=== PATIENT | male | born 1960 | race African-American/Black ===

== ENCOUNTER 2018-07-16 16:54 | Emergency (ER) | payer OTHER, MEDICAID ==
[~2018-07-16] VITALS: Ht 182.9 cm; Wt 82.0 kg
[2018-07-16 18:51] LABS: EOSINOPHILS % 2.2 % (0.0-5.0); HEMATOCRIT. 41.3 % (42.0-52.0); HEMOGLOBIN. 13.9 g/dL (14.0-18.0); LYMPHOCYTES % 20.5 % (20.0-50.0); MEAN CORPUSCULAR HEMOGLOBIN 28.2 pg (28.0-32.0); MEAN CORPUSCULAR VOLUME 83.9 fL (80.0-94.0); MEAN PLATELET VOLUME 9.4 fl (7.4-10.4); MONOCYTES % 10.8 % (2.0-8.0); NEUTROPHILS % 65.5 % (40.0-76.0); PLATELET 209 x1000/uL (130-400); RED BLOOD CELL COUNT 4.93 mill/uL (4.7-6.1); RED CELL DISTRIBUTION WIDTH 14.4 % (11.6-14.6)
[2018-07-16 18:58] LABS: CHLORIDE 101 mEq/L (98-107)
[2018-07-16 20:16] VITALS: BP 157/89
== END 2018-07-17 00:18 | disposition home or self-care (01) ==
LOC: EDSEX 16:54 → ER 16:54
DX: I10 Essential (primary) hypertension (principal); R05 Cough; Z90.89 Acquired absence of other organs
CPT/HCPCS: 36415; 71045; 80053; 84484; 85025; 93005; 99285

== ENCOUNTER 2019-09-04 08:15 | Emergency (ER) | payer MEDICAID, OTHER ==
[~2019-09-04] VITALS: Ht 182.9 cm; Wt 96.0 kg
[2019-09-04] MEDS ORDERED: DEXAMETHASONE 10 MG/ML VIAL IM ONE (10:00)
[2019-09-04] MEDS ORDERED: KETOROLAC 30MG/ML VIAL IM ONE (10:00)
[2019-09-04 10:40] VITALS: BP 147/88
== END 2019-09-04 10:40 | disposition home or self-care (01) ==
LOC: ER 08:15
DX: J02.9 Acute pharyngitis, unspecified (principal); I10 Essential (primary) hypertension
CPT/HCPCS: 96372; 99283; J1100; J1885

== ENCOUNTER 2025-03-13 16:03 | Emergency (ER) | payer MEDICAID, OTHER ==
[~2025-03-13] VITALS: Ht 182.9 cm; Wt 100.0 kg
[2025-03-13 16:30] VITALS: TEMP 36.7; O2SAT 100
[2025-03-13] MEDS ORDERED: CLONIDINE 0.2MG TABLET PO ONE (21:00)
[2025-03-13] MEDS: CLONIDINE 0.1MG TABLET PO NR (21:18)
[2025-03-13] MEDS: TETANUS, DIPHTHERIA, PERTUSSIS VAC/PF 0.5ML (>10YR OLD) IM ONE (21:21)
[2025-03-13] MEDS ORDERED: CARV12.545 MT (21:48)
[2025-03-13] MEDS ORDERED: LISI40TA13 MT (21:48)
[2025-03-13 21:59] VITALS: BP 195/109; PULSE 86; RESP 14; O2SAT 98
== END 2025-03-13 22:02 | disposition home or self-care (01) ==
LOC: ER 16:03
DX: S80.811A Abrasion, right lower leg, initial encounter (principal); I10 Essential (primary) hypertension; Z90.49 Acquired absence of other specified parts of digestive tract; Z79.899 Other long term (current) drug therapy; W54.0XXA Bitten by dog, initial encounter; Y93.89 Activity, other specified; Y92.89 Other specified places as the place of occurrence of the external cause; Y99.8 Other external cause status
CPT/HCPCS: 90471; 90715; 93005; 99283